=== PATIENT | male | born 1945 | race Hispanic/Latino ===

== ENCOUNTER 2025-07-04 08:38 | Day surgery (SDC) | payer MEDICARE, MEDICAID ==
--- NOTE | 2025-07-03 08:47 | EKG ---
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
[2025-07-03 08:58] LABS: IMMATURE GRANULOCYTE ABSOLUTE 0.04 K/uL (0-1); NUCLEATED RED BLOOD CELLS 0.0 % (0.0-0.19); PLATELET COUNT (AUTO) 200 K/uL (130-400); RED BLOOD CELL COUNT(AUTO) 4.61 MIL/uL (4.50-6.20); RED CELL DISTRIBUTION WIDTH 15.8 % (11.0-15.5); WHITE BLOOD COUNT (AUTO) 7.2 K/uL (4.8-10.8)
[2025-07-03 09:04] VITALS: BP 150/65; PULSE 64; RESP 18; TEMP 97.2
[2025-07-03 09:08] LABS: CREATININE 1.0 mg/dL (0.5-1.3); GLOMERULAR FILTR. RATE CALC 76.0 mL/min (>90); GLUCOSE,RANDOM 120.0 mg/dL (70-105); SODIUM SERUM 138.0 mmol/L (136-145); UREA NITROGEN, BLOOD 17.0 mg/dL (7-18)
[2025-07-03 09:10] LABS: INR 1.02 (0.85-1.15)
[2025-07-04] VITALS (8 sets, daily range): BP systolic 118–134; BP diastolic 63–71; PULSE 55–65; RESP 11–20; TEMP 97.3–97.9
[~2025-07-04] VITALS: Ht 157.5 cm; Wt 90.1 kg
[~2025-07-04 08:38] MED LIST: AMLO-257 PO; APIX5TAB PO; BRIM5DRO OP; EMPA1TAB15 PO; ESCI-8 PO; FOLIC ACID PO; LATA2.5D7 OU; LOSA50TA64 PO; MECLIZINE PO; MEMA10TA21 PO; OMEP40CA21 PO; RIVA1PAT9 TD; ROSUVASTATIN PO; SPIR25TA6 PO; TAMS-55 PO; TIRZ5PEN SQ
[2025-07-04] MEDS: 0.9%NACL 1000ML 1,000 ML IV SCH (09:22)
[2025-07-04] MEDS ORDERED: LIDOCAINE HCL 400MG/20ML VIAL ONE (12:05)
[2025-07-04] MEDS ORDERED: SODIUM BICARB 50MEQ 50ML VIAL 50 ML ONE (12:06)
[2025-07-04] MEDS ORDERED: HEParin-NS 1,000 UNIT/500 ML 1,000 ML IV ONE (12:06)
[2025-07-04] MEDS ORDERED: MIDAZOLAM HCL 1 MG/ML 2ML VIAL ONE (12:47)
[2025-07-04] MEDS ORDERED: ISOPROTERENOL HCL 0.2 MG/ML AMP/VIAL/BAG ONE (13:04)
--- NOTE | 2025-07-04 17:07 | NUR ---
patient discharged from facility via wheelchair by nurse and assisted into private vehicle drive by lorna
== END 2025-07-04 17:06 | disposition home or self-care (01) ==
LOC: DAH 08:38
PROVIDERS: ATTEND Internal Medicine Cardiovascular Disease
DX: I48.4 Atypical atrial flutter (principal); I25.10 Atherosclerotic heart disease of native coronary artery without angina pectoris; I11.0 Hypertensive heart disease with heart failure; I50.22 Chronic systolic (congestive) heart failure; E11.9 Type 2 diabetes mellitus without complications; E78.5 Hyperlipidemia, unspecified; Z79.01 Long term (current) use of anticoagulants; Z79.899 Other long term (current) drug therapy
CPT/HCPCS: 80048; 85025; 85610; 85730; 36415; 93005; 93653; 99156; 99157 ×4; 82948 ×2; C1894 ×2; C1732 ×2; C1893; A4649 ×2; C1760 ×2; J3010; J3490 ×2; J1644 ×2; J2250; A4215; A4222; A4221; A4663; A4216; A4606; A4223 ×3